=== PATIENT | male | born 1975 | race Caucasian/White ===

== ENCOUNTER → 2020-10-24 | Outpatient (CLI) | payer BC | LOC: KOH-I 09:15 | DX: R06.02 Shortness of breath (principal); R91.8 Other nonspecific abnormal finding of lung field | CPT/HCPCS: 71046 ==

== ENCOUNTER → 2020-11-21 | Outpatient (CLI) | payer BC | LOC: KOH-I 09:42 | DX: R07.9 Chest pain, unspecified (principal) | CPT/HCPCS: 71046 ==